=== PATIENT | female | born 1935 | race Caucasian/White ===

== ENCOUNTER → 2016-07-11 | Outpatient (CLI) | payer MEDICARE ==
[~2016-07-11] MED LIST: ALBU8.5H INH; BENZ100C97 PO; DOXE10CA21 PO; ESCI20TA22 PO; ESOM40CA PO; FENO145T10 PO; FLEC50TA2 PO; FLUT1DIS3 ORAL INH; FLUT1DIS4 IH; GUAI-1123 PO; IPRA3AMP AEROSOL; ISOS60TA4 PO; LEVO150T4 PO; LORA0.5T2 PO; LOSA50TA52 PO; MAGN250T33 PO; MECL-103 PO; METH750T3 PO; METO100T97 PO; MULT-862 PO; ONDA4TAB7 PO; RIVA15TA PO; SITA100T6 PO; SUCR1TAB PO; SULF1TAB42 PO; TOPI50TA25 PO; TRIA-56 PO; [UNRECOGNIZED DRUG - CODE] PO
== END ==
LOC: WC.BC 12:42
DX: Z12.31 Encounter for screening mammogram for malignant neoplasm of breast (principal); N64.59 Other signs and symptoms in breast; N64.89 Other specified disorders of breast
CPT/HCPCS: 77063; G0202

== ENCOUNTER 2016-11-16 11:14 | Observation (INO) ==
--- OUTSIDE RECORDS SUMMARY | 2016-11-16 11:29 | External Medical Summary | Continuity of Care Document ---
:1935 Author Organization [facility] Support Name Relationship Address Phone YELENA WESTON MD Unavailable [address] [place] [address] [address] SEAMUS TENORIO MD Unavailable [address] [place] [address] AURORA QUINONES DO Unavailable [employer] Unavailable [address] [place] [address] GUS BADILLO Unavailable [address] [place] [address] Insurance Providers Payer Name Policy Number Subscriber Name Relationship Medicare [id number] Adrianna Badillo 18 Self [facility] [id number] Gus Badillo 01 Spouse Advance Directives Directive Response Recorded Date/Time Advanced Directives Type Living Will DPOA for Healthcare 09/15/13 12:16pm Ordered Resuscitation Status Full Code, unverified 08/19/13 1:11pm Resuscitation Documents on File No 09/15/13 12:16pm Problems Medical Problems Problem Onset Date Status Dehydration Unknown Active GERD WITH ESOPHAGEAL SPASM Unknown Active Abdominal pain Unknown Active Abdominal pain Unknown Active Atypical chest pain Unknown Active Dyslipidemia Unknown Active Hypertension Unknown Active Paroxysmal atrial fibrillation Unknown Active Atypical chest pain Unknown Active Tinea cruris Unknown Active Tinea cruris Unknown Active Muscle spasm of left shoulder Unknown Active Forehead contusion Unknown Active Fall on same level Unknown Active Avulsed toenail Unknown Active Contusion of left knee Unknown Active COPD exacerbation Unknown Active Viral bronchitis Unknown Active COPD exacerbation Unknown Active Leg pain Unknown Active Hematoma of leg Unknown Active Dyspnea Unknown Active Muscle spasms of both lower extremities Unknown Active Anxiety attack Unknown Active Chest discomfort Unknown Active Tingling in extremities Unknown Active Muscle spasms of both lower extremities Unknown Active Tingling in extremities Unknown Active Medications Medication Dose Route Sig Days/Qty Instructions Order Discontinued Status Date Date [Actosin /26/11 Discontin Cream] 09 ued Fexofenadine 1 Tab PO DAILY /07/12 Discontin Hcl 09 ued [Note] 02/11/ /06/18 Discontin 08 ued Ivermectin 06/13/08 Discontin 08 ued Levothyroxine 1 Tab PO DAILY 06/13/08 Discontin Sodium 08 ued Salmeterol 1 Inh IH TWICE A 04/21/10 Discontin Xinafoate/Flut DAY 10 ued icasone Alprazolam 0.5 Mg PO 11/12/10 Discontin NEEDED 09 ued Zolpidem 10 Mg PO 03/12/10 Discontin Tartrate NEEDED 09 ued [Atrovent] 1 Inh INH DAILY 08/26/08 Discontin 09 ued Citalopram 20 Mg PO DAILY 12/03/08 Discontin Hydrobromide 09 ued Digoxin 250 PO DAILY 12/03/08 Discontin Mcg 09 ued Fluticasone 2 INH DAILY 12/03/08 Discontin Propionate Sloan 09 ued Triamterene/Hy 1 PO DAILY 03/28/10 Discontin drochlorothiaz Udtab 09 ued id Telmisartan 80 Mg PO DAILY 12/03/08 Discontin 09 ued Esomeprazole 40 Mg PO DAILY 03/12/10 Discontin Mag Trihydrate 09 ued Amlodipine 5 Mg PO DAILY 03/12/10 Discontin Besylate 09 ued Clopidogrel 75 Mg PO DAILY 12/03/08 Discontin Bisulfate 09 ued Ropinirole Hcl 1 Mg PO BEDTIME 03/12/10 Discontin 09 ued Levothyroxine 125 PO DAILY 03/12/10 Discontin Sodium Mcg 09 ued Levalbuterol 1.25 IH 12/03/08 Discontin Hcl Mg NEEDED 09 ued Ipratropium 500 NEB FOUR 09/12/10 Discontin [place] Mcg TIMES 09 ued DAILY Venlafaxine 150 Mg PO DAILY 03/12/10 Discontin Hcl 09 ued Fenofibrate 1 DAILY 04/08/11 Discontin Nanocrystalliz 09 ued ed Metaxalone 1 03/12/10 Discontin NEEDED 09 ued Sotalol Hcl 1 TWICE A 12/03/08 Discontin DAY 09 ued Sodium Oxybate 1 DAILY 12/03/08 Discontin 09 ued Cyclobenzaprin 1 DAILY 03/12/10 Discontin e Hcl 09 ued Meloxicam 1 DAILY 03/12/10 Discontin 09 ued [Coumadin] 1 PO DAILY 03/12/10 Discontin 09 ued Furosemide 20 Mg PO DAILY 03/12/10 Discontin 09 ued Metformin Hcl 500 Mg PO DAILY /28/12 Discontin 09 ued [Digoxin] 25 Mg PO DAILY 03/12/10 Discontin 09 ued Flecainide 50 Mg PO DAILY 03/12/10 Discontin Acetate 09 ued Potassium 20 Meq PO DAILY 03/12/10 Discontin Chloride 09 ued Metoprolol 50 Mg PO TWICE A 01/05/11 Discontin Tartrate DAY 09 ued Sodium Oxybate 500 Mg PO DAILY 03/12/10 Discontin 10 ued Cefprozil TWICE A 03/28/10 Discontin DAY 11 ued [Hyoscamine] 0.125 Q4H PRN 09/12/10 Discontin 11 ued [Janovia] DAILY 03/28/10 Discontin 11 ued [Pradaxa] 150 Mg PO TWICE A 09/12/10 Discontin DAY 11 ued [Multaq] 400 Mg TWICE A 09/12/10 Discontin DAY 11 ued Sitagliptin 100 Mg PO DAILY 04/21/10 Discontin Phosphate 11 ued Triamterene/Hy 0.5 PO DAILY 03/29/10 Discontin drochlorothiaz Tab 11 ued id Lansoprazole 15 Mg PO DAILY 09/12/10 Discontin 11 ued Amlodipine 10 Mg PO DAILY 03/28/10 Discontin Besylate 11 ued Telmisartan 80 Mg PO DAILY 09/12/10 Discontin 11 ued [Juice Plus 09/12/10 Discontin Fiber] NEEDED 11 ued Ascorbic Acid 500 Mg PO TWICE A 09/12/10 Discontin DAY 11 ued Cholecalcifero 400 PO DAILY 04/21/10 Discontin l Unit 11 ued Calcium 1 Tab PO DAILY 03/28/ 04/21/10 Discontin Carbonate/Marta 11 ued min D3 Ergocalciferol 1 Mg PO DAILY 09/12/10 Discontin 11 ued Amlodipine 1 Mg PO DAILY 04/21/ 09/12/10 Discontin Besylate 11 ued Triamterene/Hy 1 Tab PO 1/2 TAB DLY 09/16/13 Discontin drochlorothiaz 11 ued id Sitagliptin 1 Tab PO DAILY 04/21/ Active Phosphate 11 Alprazolam 1 Mg PO TWICE A 01/05/11 Discontin DAY 11 ued Albuterol 2 Mg INH EVERY /02/20 Discontin Sulfate 4-6 11 ued HOURS Gabapentin 1 Mg PO THREE 04/21/10 Discontin TIMES A 11 ued DAY Salmeterol 1 INH TWICE A 11/12/10 Discontin Xinafoate/Flut DAY 11 ued icasone Hyoscyamine 1 Mg PO 01/05/11 Discontin Sulfate NEEDED 11 ued Fenofibrate 1 Mg PO DAILY 04/21/10 Discontin Nanocrystalliz 11 ued ed Metoprolol 50 Mg PO TWICE A 04/21/10 Discontin Tartrate DAY 11 ued Hydrocodone 2 PO 09/12/10 Discontin Bit/Acetaminop NEEDED 11 ued hen [Pradaxa] 150 Mg PO DAILY 05/24/12 Discontin 11 ued Salmeterol 1 Puff IH TWICE A 01/22/12 Discontin Xinafoate/Flut DAY 11 ued icasone Fexofenadine 180 Mg PO DAILY 09/12/ 11/12/10 Discontin Hcl 11 ued Eszopiclone 2 Mg PO BEDTIME 04/08/11 Discontin 11 ued [Multaq] 400 Mg PO TWICE A 05/24/12 Discontin DAY 11 ued Omeprazole 20 Mg PO DAILY 11/12/10 Discontin 11 ued Loperamide Hcl 2 Mg PO 01/05/11 Discontin NEEDED 11 ued Isosorbide 30 Mg PO DAILY 04/08/11 Discontin Mononitrate 12 ued Metoprolol 100 Mg PO TWICE A 03/27/ 08/30/13 Discontin Tartrate DAY 12 ued Ascorbic Acid 500 Mg PO TWICE A 03/27/ 01/22/12 Discontin DAY 12 ued Ergocalciferol 400 PO DAILY 03/27/ 04/08/11 Discontin Unit 12 ued Fexofenadine 180 Mg PO DAILY 03/27/ 01/22/12 Discontin Hcl 12 ued [ 1 Tab PO DAILY 04/08/11 Discontin Angel] 12 ued Calcium 600 PO THREE 03/27/ 01/22/12 Discontin Citrate/Vitami Tab TIMES A 12 ued n D3 DAY Triamterene/Hy 25 PO DAILY 04/08/ 04/08/11 Discontin drochlorothiaz Udtab 12 ued id Polyethylene 12 Ea PO DAILY 04/08/ 01/22/12 Discontin Glycol 3350 12 ued Docusate 100 Mg PO TWICE A 04/08/ 01/22/12 Discontin Sodium DAY 12 ued Oxycodone 2 PO EVERY 02/20/12 Discontin Hcl/Acetaminop Udtab 4-6 12 ued hen HOURS Dronedarone TWICE A 05/24/ 04/02/13 Discontin Hydrochloride DAY 13 ued Escitalopram 20 Mg PO DAILY 90 Qty 04/02/13 Discontin Oxalate 13 ued Levothyroxine 200 PO DAILY 90 Qty 11/26/ 09/15/13 Discontin Sodium Mcg 13 ued Hyoscyamine 0.375 PO TWICE A 11/26/ Active Sulfate Mg DAY 13 Rivaroxaban 1 Tab PO DAILY 11/26/ 13 Doxepin Hcl 10 Mg PO BEDTIME Active 13 Salmeterol 1 Puff IH DAILY 11/26/ Active Xinafoate/Flut 13 icasone Fenofibrate 145 Mg PO DAILY 90 Qty 11/26/ 04/02/13 Discontin Nanocrystalliz 13 ued ed Escitalopram 1 Tab PO DAILY 04/02/ Active Oxalate 14 Fenofibrate 145 Mg PO DAILY 04/02/ Active Nanocrystalliz 14 ed Topiramate 50 Mg PO BEDTIME 08/19/ 09/15/13 Discontin 14 ued Metoprolol 100 Mg PO TWICE A 08/30/ Active Tartrate DAY 14 Hydrocodone 1 Tab PO EVERY 20 Qty 08/30/ 09/15/13 Discontin Bit/Acetaminop 4-6 14 ued hen HOURS For PAIN Hyoscyamine 0.125 SL Every 8 12 Qty 08/30/ 09/15/13 Discontin Sulfate Mg Hours 14 ued For SPASMS Multivitamins 1 Tab PO DAILY 09/15/ Active W-Minerals 14 Losartan 1 Tab PO DAILY 09/15/ Active Potassium 14 Isosorbide 60 Mg PO DAILY 09/15/ Active Mononitrate 14 Acetaminophen 1 Tab PO 09/15/ /10/23 Discontin NEEDED 14 ued Levothyroxine 200 PO GIVE 1 Qty 09/15/ 04/18/14 Discontin Sodium Mcg WITH 14 ued SUPPER Guaifenesin/De 1 Cap PO EVERY 10/27/ Active xtromethorphan FIVE TO 14 SIX HOURS Triamterene/Hy 1 Tab PO DAILY 10/27/ Active drochlorothiaz 14 id Meclizine HCl 25 Mg PO THREE 10/27/ Active TIMES A 14 DAY PRN PRN ORDERS Levothyroxine 1 Tab PO BEFORE 04/18/ Active Sodium BREAKFA [address] Esomeprazole 1 Cap PO BEDTIME 04/18/ Active Magnesium 15 Benzonatate 1 Tab PO THREE 04/18/ Active TIMES A 15 DAY PRN COUGH Lorazepam 1 Tab PO TWICE A 04/18/ Active DAY PRN 15 ANXIETY Methocarbamol 750 Mg PO FOUR 04/18/ Active TIMES 15 DAILY PRN PRN ORDERS Topiramate 1 Tab PO BEDTIME 04/18/ Active 15 Ibuprofen 1 Tab PO TWICE A 04/18/ Active DAY 15 Prochlorperazi 10 Mg PO DAILY 04/18/ Active ne Maleate PRN PRN 15 ORDERS Ipratropium/Al 1 Unit AEROSOL Every 6 06/19/ Active buterol Hours 15 Sulfate Methocarbamol 1 Tab PO Every 6 06/19/ Active Hours 15 PRN PRN ORDERS Isosorbide 1 Tab PO TWICE A 06/19/ Active Mononitrate DAY 15 Losartan 1 Tab PO DAILY 06/19/ Active Potassium 15 Oxycodone HCl 1 Tab PO TWICE A 06/19/ Active DAY PRN 15 PAIN Albuterol 1 Puff INH DAILY 26 Qty 06/19/ Active Sulfate PRN 15 SHORTNE SS OF AIR Escitalopram 1 Tab PO DAILY 06/19/ Active Oxalate 15 Social History Social History Problem Response Recorded Date/Time Chewing Tobacco Status No 08/30/2013 5:27am Hx Substance Use No 06/19/2014 3:42pm Hx Alcohol Use No 06/19/2014 3:42pm Has the pt used tobacco in the last 12 months No 09/15/2013 12:19pm Tobacco Usage none 09/15/2013 2:40pm Query Response Start Date Stop Date Smoking Status Never smoker Hospital Discharge Instructions No hospital discharge instructions. Plan of Care No plan of care. Functional Status Query Response Date Recorded Physical Hygiene Assist June 19, 2014 3:42pm Disabilities None September 16, 2013 6:12pm Devices Used None June 19, 2014 3:42pm Dressing Assist June 19, 2014 3:42pm Ambulation Self September 16, 2013 6:12pm Diet Self June 19, 2014 3:42pm Mental Status Alert September 16, 2013 6:12pm Oriented Disabilities None September 16, 2013 6:12pm Devices Used None June 19, 2014 3:42pm Physical Hygiene Assist June 19, 2014 3:42pm Dressing Assist June 19, 2014 3:42pm Ambulation Self September 16, 2013 6:12pm Diet Self June 19, 2014 3:42pm Allergies, Adverse Reactions, Alerts Allergen Type Severity Reaction Status Last Updated ciprofloxacin HCl Allergy Unknown N/V/DIARRHEA, SOA, Active 06/19/14 ITCHING Penicillin Allergy Severe THROAT SWELLING Active 06/19/14 [place] And Derivatives Allergy Unknown ORANGES Active 06/19/14 Iodine Allergy Severe IV-DIFFICULTY BREATHING, Active 06/19/14 HIVES Codeine Allergy Severe THROAT SWELLING Active 06/19/14 Aspirin Allergy Severe THROAT SWELLS SHUT Active 06/19/14 Doxycycline Allergy Mild Active 06/19/14 Ciprofloxacin Allergy Unknown N/V/DIARRHEA, SOA, Active 06/19/14 ITCHING Adhesive Allergy Unknown Active 06/19/14 Citalopram Allergy Unknown Active 06/19/14 fish derived Allergy Severe HIVES, SWELLING THROAT Active 06/19/14 Apples Allergy Mild Active 06/19/14 Immunizations Name Given Type Hx Influenza Vaccination Y FALL 2013 Historical Hx Pneumococcal Vaccination Y FALL 2012 Historical Hx Influenza Vaccination Y FALL 2013 Historical Vital Signs Acute Vital Signs Vital Response Date/Time Temperature (Fahrenheit) 97.6 deg F (96.8 - 99.1) Temperature (Calculated Celsius) 36.34677 degrees C (36.0 - 37.3) Pulse Rate (adult) 118 bpm (60 - 100) Respiratory Rate 12 breaths/min (10 - 20) O2 Sat by Pulse Oximetry 99 % (90 - 100) Oxygen Flow Rate 4 L/min Blood Pressure 158/74 mm Hg Height 5 ft 5 in Weight 322 lb Body Mass Index 53.0 kg/m^2 Results Test Source Date Result Interp. Ref. Comments Range Activated Partial October 27, 25.8 SEC N 24-36 Thromboplast Time 2013 8:40am Alanine June 01, 29 U/L N 9-52 Aminotransferase 2014 1:55am (ALT/SGPT) Albumin June 01, 3.5 G/DL N 3.5-5. 2014 1:55am 0 Albumin/Globulin June 01, 1.5 RATIO N 1.1-2. Ratio 2014 1:55am 2 Alkaline June 01, 33 U/L L 38-126 Phosphatase 2014 1:55am Amylase Level November 70 U/L N 30-110 2011 10:05pm Anion Gap June 01, 11 MEQ/L N 5-15 2014 1:55am Arterial Blood June 13, -0.5 MMOL/L N -2.0-2 Is the Base Excess 2009 .0 patient on 10:55am room air? YWhat is the Source? (Liters or Percent) ROOM AIR Arterial Blood June 13, 24 MEQ/L N 22-26 Is the HCO3 2008 patient on 10:55am room air? YWhat is the Source? (Liters or Percent) ROOM AIR Arterial Blood June 13, Not Performed - Oxygen Content 2008 10:55am Arterial Blood June 13, 39 MMHG N 34-45 Is the Partial Pressure 2008 patient on CO2 10:55am room air? YWhat is the Source? (Liters or Percent) ROOM AIR Arterial Blood June 13, 25.4 MEQ/L N 23-27 Is the Total CO2 2008 patient on 10:55am room air? YWhat is the Source? (Liters or Percent) ROOM AIR Arterial Blood pH June 13, 7.400 N 7.350- Is the 2008 7.450 patient on 10:55am room air? YWhat is the Source? (Liters or Percent) ROOM AIR Arterial Blood pO2 June 13, 84 MMHG N 80-100 Is the at Patient Temp 2008 patient on 10:55am room air? YWhat is the Source? (Liters or Percent) ROOM AIR Aspartate Amino June 01, 21 U/L N 14-36 Transf (AST/SGOT) 2014 1:55am B-Type Natriuretic January 05, 58 PG/ML N 15-100 Peptide 2010 12:52pm BUN/Creatinine June 01 RATIO N 6-26 Ratio 2014 1:55am Band Neutrophils # November 06, 0.1 T/MM3 - 2008 12:20pm Band Neutrophils % November 06, 1.0 % N 0-6 2008 12:20pm Basophils # (Auto) June 01, 0.0 T/MM3 N 0-0.2 2014 1:55am Basophils (%) June 01, 0.3 % N 0-2 (Auto) 2014 1:55am Blood Gas Oxygen June 13, 96.0 % N 95.0-9 Is the Saturation 2008 8.0 patient on 10:55am room air? YWhat is the Source? (Liters or Percent) ROOM AIR Blood Gas Tidal June 13, Not Performed 0-1200 Volume 2008 10:55am Blood Gas Vent June 13, Not Performed 0-30 Rate 2008 10:55am Blood Urea June 01, 33.0 MG/DL H 7-17 Nitrogen 2014 1:55am C-Reactive Protein September 15, < 5.0 MG/L 0-9 2013 12:30pm C. difficile Toxin June 21, Negative - If Toxin A is B Gene (PCR) 2012 7:20am clinically indicated, treat accordingly. Calcium Level June 01, 8.5 MG/DL N 8.4-10 2014 1:55am .2 Calculated June 01, 276 MOSM/KG N 261-28 Osmolality 2014 1:55am 0 Carbon Dioxide June 01, 25 MEQ/L N 22-30 Level 2014 1:55am Chemistry Specimen June 01, < 15 0-25 0-25: No Hemolysis.26-70: Slight Hemolysis - can falsely elevate K and Urine Hemolysis 2014 1:55am Protein. 71-285: Moderate Hemolysis - can falsely elevate K, Troponin I, CA 19-9, PTH, CSF GLucose, and Urine Protein, and can falsely decrease Phenytoin. 286-999: Gross Hemolysis - can falsely elevate K, Troponin I, CA 19-9, PTH, CSF Glucose, and Urine Protine, and can falsely decrease Phenytoin. Recommend specimen recollection. Chloride Level June 01, 103 MEQ/L N 98-107 2014 1:55am Cholesterol Level September 16, 187 MG/DL N 132-19 2013 4:38am 9 Cholesterol/HDL September 16, 3.9 RATIO N 0-4.0 Ratio 2013 4:38am Conjugated September 07, 0.00 MG/DL N 0.00-0 Bilirubin 2011 3:40pm .30 Creatine Kinase MB January 1.0 NG/ML N 0-3.4 2013 2:30pm Creatinine June 01, 2.0 MG/DL H 0.7-1. 2014 1:55am 2 D-Dimer January 177 NG/ML N 0-224 <224 2013 NG/ML=PRESUMP 2:30pm TIVE NEGATIVE FOR PE OR DVT>224 NG/ML=ADDITIO NAL EVALUATION FOR PE OR DVT RECOMMENDED Digoxin Level February 2.6 NG/ML PH 0.8-2. 10, 2008 0 1:50pm EKG February 1:55pm Eosinophils # June 01, 0.2 T/MM3 N 0-0.5 (Auto) 2014 1:55am Eosinophils # November 06, 0.1 T/MM3 N 0-0.5 (Manual) 2008 12:20pm Eosinophils % November 06, 1.0 % N 0-4 (Manual) 2008 12:20pm Eosinophils (%) June 01, 2.7 % N 0-4 (Auto) 2014 1:55am Erythrocyte September 15, 5 MM/HR N 0-20 Sedimentation Rate 2013 12:30pm Ferritin April 94.4 NG/ML N 11-264 2010 6:40pm Free Thyroxine April 02, 0.69 NG/DL L 0.78-2 2013 5:55pm .19 Globulin June 01, 2.4 G/DL N 2.4-3. 2014 1:55am 6 Glomerular June 01, 24 - Filtration Rate 2014 1:55am Calc Glucometer September 16, 139 mg/dL H 65-110 2013 5:13pm Glucose Level June 01, 108 MG/DL N 65-110 2014 1:55am HDL Cholesterol September 16, 48 MG/DL N 40-60 Direct 2014 4:38am Hematocrit June 01, 31.5 % L 36-46 2014 1:55am Hemoglobin June 01, 9.8 GM/DL L 12-16 2014 1:55am Hemoglobin A1c September 16, 5.4 % L 6-7 <6.0 NON-DIABETIC RANGE6.0-7.0 ADA THERAPEUTIC RANGE 2013 4:38am >7.0 ACTION SUGGESTED Icterus Index June 01, < 2 0-7 2014 1:55am Immature June 01, 0.06 T/MM3 H 0.00-0 Granulocyte # 2015 1:55am .03 (Auto) Immature June 01, 0.8 % H 0.0-0. Granulocyte % 2014 1:55am 5 (Auto) Influenza Type A April 02, Negative - Negative for Flu A protein antigen. Assay sensitivity isbetween 65-83%. A negative result does not exclude Antigen 2013 6:38pm influenza virus infection. "Influenza FA& quot; may be ordered if clinical presentation warrants confirmatory testing. Influenza Type B April 02, Negative - Negative for Flu B protein antigen. Assay sensitivity isbetween 65-83%. A negative result does not exclude Antigen 2013 6:38pm influenza virus infection. "Influenza FA& quot; may be ordered if clinical presentation warrants confirmatory testing. Iron Level April 36 UG/DL L 37-170 2010 6:40pm LDL Cholesterol, September 16, 105.8 N 66-159 Calculated 2013 4:38am Lab Scanned Report January LAB TEST FORM - 2013 REQUEST 7:23pm [id number] Lipase September 16, 131 U/L N 23-300 COMMENT add 2013 4:38am to blood in lab from this AM. Lymphocytes # June 01, 1.9 T/MM3 N 1-4.8 (Auto) 2014 1:55am Lymphocytes # November 06, 3.0 T/MM3 N 1-4.8 (Manual) 2008 12:20pm Lymphocytes % November 06, 29.0 % N 23-45 (Manual) 2008 12:20pm Lymphocytes (%) June 01, 25.1 % N 23-45 (Auto) 2014 1:55am MRSA Specimen March 23, Nasal - Source 2011 1:53pm Magnesium Level September 15, 1.8 MG/DL N 1.6-2. 2013 3 12:30pm Mean Corpuscular June 01, 29.6 UUG N 26-34 Hemoglobin 2015 1:55am Mean Corpuscular June 01, 31.1 GM/DL N 31-37 Hemoglobin Concent 2014 1:55am Mean Corpuscular June 01, 95.2 UM3 N 80-100 Volume 2015 1:55am Mean Platelet June 01, 10.8 UM3 N 9.4-12 Volume 2015 1:55am .4 Methicillin-Resist March 23, Negative - S.aureus DNA PCR 2011 1:53pm Monocytes # (Auto) June 01, 0.7 T/MM3 N 0-0.8 2014 1:55am Monocytes # November 06, 0.1 T/MM3 N 0-0.8 (Manual) 2008 12:20pm Monocytes % November 06, 1.0 % N 0-9.0 (Manual) 2008 12:20pm Monocytes (%) June 01, 8.9 % N 0-9.0 (Auto) 2014 1:55am PR-Mri-A-Type November 347 PG/ML H 0-175 Rule in cut points: <50 years old=450; Natriuretic 2013 50-75 years old=900; Peptide 2:37pm >75 years old=1800; When utilizing ProBNP rule-in cut points, adjustment for impaired renal function is typically not required. Neutrophils # June 01, 4.7 T/MM3 N 1.8-7. (Auto) 2014 1:55am 7 Neutrophils # November 06, 6.9 T/MM3 N 1.8-7. (Manual) 2008 7 12:20pm Neutrophils % November 06, 68.0 % H 33-66 (Manual) 2008 12:20pm Neutrophils (%) June 01, 62.2 % N 33-66 (Auto) 2014 1:55am Ova and Parasites April Ref lab rpt - --- 05/04/10 (LAB) 2010 scanned [id number] ---OAP 2:50pm previously reported as: SENT OUT Oxygen Delivery June 13, Room air - Is the Method (LAB) 2008 patient on 10:55am room air? YWhat is the Source? (Liters or Percent) ROOM AIR Percent Iron April 9 % N 9-55 Saturation 2010 6:40pm Platelet Count June 01, 169 T/MM3 N 130-40 2014 1:55am 0 Potassium Level June 01, 4.0 MEQ/L N 3.6-5 2014 1:55am Prothromb Time October 27, 1.00 N 0.81-1 THERAPUTIC International 2013 8:40am .09 RANGE=2.00-3. Ratio 00 FOR ANTI-THROMBOS IS THERAPUTIC RANGE=2.50-3. 50 FOR IMPLANTED VALVE RDW Standard June 01, 44.9 FL N 36.9-5 Deviation 2014 1:55am 0.2 Red Blood Count June 01, 3.31 M/MM3 L 4.00-5 2014 1:55am .20 Sodium Level June 01, 139 MEQ/L N 134-14 2014 1:55am 4 Stool for White April Negative - Has specimen Cells 2010 been 2:50pm collected/obt ained? Y Tests Not Done November Not done - Has specimen 2008 been 2:00pm collected/obt ained? Y Thyroid September 15, 0.87 MIU/L DN 0.47-4 Stimulating 2013 .68 Hormone (TSH) 12:30pm Total Bilirubin June 01, 0.30 MG/DL N 0.20-1 2014 1:55am .30 Total Creatine January 77 U/L N 30-135 Kinase 2013 2:30pm Total Iron Binding April 393 UG/DL N 261-49 Capacity 2010 7 6:40pm Total Protein June 01, 5.9 G/DL L 6.3-8. 2014 1:55am 2 Triglycerides September 16, 166 MG/DL H 35-135 Level 2013 4:38am Troponin I April < 0.012 0-0.12 2014 ng/ml 3:30pm Turbidity June 01, < 20 0-20 2014 1:55am Unconjugated September 07, 0.10 MG/DL N 0.00-1 Bilirubin 2011 3:40pm .10 Urinalysis Comment February Microscopic - Has specimen 2013 not ind. been 3:50am collected/obt ained? Y Urine Amorphous April 01 - COMMENT C/S Urates 2010 IF 11:00am INDICATEDHas specimen been collected/obt ained? Y Urine Bacteria September 16, 3+ H - COMMENT do 2013 4:50am full UA.Has specimen been collected/obt ained? Y Urine Bilirubin February Negative - Has specimen 2013 been 3:50am collected/obt ained? Y Urine Blood February Negative - Has specimen 2013 been 3:50am collected/obt ained? Y Urine Coarse April 01- /LPF - COMMENT C/S Granular Casts 2010 IF 11:00am INDICATEDHas specimen been collected/obt ained? Y Urine Collection February Cleancatch-mi - Has specimen Type 2013 dstream been 3:50am collected/obt ained? Y Urine Color February Yellow - Has specimen 2013 been 3:50am collected/obt ained? Y Urine Culture January 07 reflexed - Has specimen Indicated 2012 8:55am &setup been collected/obt ained? Y Urine Glucose (UA) February Negative - Has specimen 2013 been 3:50am collected/obt ained? Y Urine Ketones February Negative - Has specimen 2013 been 3:50am collected/obt ained? Y Urine Leukocyte February Negative - Has specimen Esterase 2013 been 3:50am collected/obt ained? Y Urine Microscopic April Not indicated - Has specimen Not Indicated 2010 been 12:46pm collected/obt ained? Y Urine Mucus September 12 - Has specimen 2010 1:32pm been collected/obt ained? Y Urine Nitrite February Negative - Has specimen 2013 been 3:50am collected/obt ained? Y Urine Protein February Negative - Has specimen 2013 been 3:50am collected/obt ained? Y Urine RBC September 16, None seen - COMMENT do 2013 4:50am /HPF full UA.Has specimen been collected/obt ained? Y Urine Random September 16, 54.1 MG/DL - Has specimen Creatinine 2013 4:50am been collected/obt ained? Y Urine Random Urea September 16, 520.0 MG/DL - Has specimen Nitrogen 2013 4:50am been collected/obt ained? Y Urine Renal November 01-3 /HPF - Epithelial Cells 2012 12:08pm Urine Specific February 1.015 - Has specimen [place] 2013 been 3:50am collected/obt ained? Y Urine Squamous September 16, 0-5 - COMMENT do Epithelial Cells 2013 4:50am full UA.Has specimen been collected/obt ained? Y Urine Turbidity February Clear - Has specimen 2013 been 3:50am collected/obt ained? Y Urine Urobilinogen February 0.2 EU/DL - Has specimen 2013 been 3:50am collected/obt ained? Y Urine WBC September 16, 3-5 /HPF - COMMENT do 2013 4:50am full UA.Has specimen been collected/obt ained? Y Urine WBC Clumps September 16, Few - COMMENT do 2013 4:50am full UA.Has specimen been collected/obt ained? Y Urine pH February 7.0 - Has specimen 2013 been 3:50am collected/obt ained? Y VLDL Cholesterol September 16, 33.2 MG/DL H 0-2013 4:38am White Blood Count June 01, 7.5 T/MM3 N 4.5-11 2014 1:55am .0 Blood Culture Blood April NO GROWTH 2010 AFTER 5 DAYS 12:46pm Stool Culture Stool April 21, 2010 2:50pm Gram Stain Knee, March 28, Intraoperative 2011 Site-Right 12:47pm Urine Culture Urine, Clean April Escherichia Catch-Midstream 2013 Coli 3:00pm Name: ADRIANNA BADILLO Unit #: [id number] : 1935 Sex: F Loc / Svc: ED DOS: 06/19/14 Signed Report #: [id number] DIAGNOSTIC IMAGING REPORT TYPE OF EXAM: KNEE LEFT 3 VIEWS Dictated By: YURY PELAEZ MD Indication: ITS.REASON: FALL WITH KNEE PAIN Comparison: 03/15/2014 Findings: Bony mineralization is normal. 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 The hardware components appear unchanged without evidence of acute complication. No periprosthetic fracture identified. No significant joint effusion. No focal radiographically apparent soft tissue abnormality. 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 . Procedures Procedure Status Date Provider(s) CHEST X-RAY 2VW FRONTAL&LATL completed 04/18/14 COMPREHEN METABOLIC PANEL completed 04/18/14 ASSAY OF TROPONIN QUANT completed 04/18/14 COMPLETE CBC W/AUTO DIFF WBC completed 04/18/14 AIRWAY INHALATION TREATMENT completed 04/18/14 AIRWAY INHALATION TREATMENT completed 04/18/14 THER/PROPH/DIAG INJ IV PUSH completed 04/18/14 TX/PRO/DX INJ NEW DRUG ADDON completed 04/18/14 EMERGENCY DEPT VISIT completed 04/18/14 [id number] ITEM OR SERVICE completed 04/18/14 [id number]"INJECTION, KETOROLAC TROMETHAMINE, PER 15 completed 04/18/14 MG" [id number]"INJECTION, METHYLPREDNISOLONE SODIUM completed 04/18/14 SUCCINATE, UP TO EMERGENCY DEPT VISIT completed 05/04/14 ROUTINE VENIPUNCTURE completed 06/01/14 CHEST X-RAY 2VW FRONTAL&LATL completed 06/01/14 COMPREHEN METABOLIC PANEL completed 06/01/14 COMPLETE CBC W/AUTO DIFF WBC completed 06/01/14 HYDRATE IV INFUSION ADD-ON completed 06/01/14 HYDRATE IV INFUSION ADD-ON completed 06/01/14 THER/PROPH/DIAG INJ IV PUSH completed 06/01/14 EMERGENCY DEPT VISIT completed 06/01/14 [id number]"INFUSION, NORMAL SALINE SOLUTION , 1000 completed 06/01/14 CC" Encounters Encounter Location Date/Time Departed Emergency Room [facility] 06/19/14 3:20pm Departed Emergency Room [facility] 06/01/14 12:55am Departed Emergency Room [facility] 05/04/14 3:30am Departed Emergency Room [facility] 04/18/14 2:54pm Recent Diagnosis
[2016-11-16] MEDS ORDERED: SALINE FLUSH 10ml SYRINGE IVF PRN (11:41)
[2016-11-16 11:50] VITALS: BMI 48.1
[2016-11-16 11:57] VITALS: RESP 16
[2016-11-16] MEDS: FUROSEMIDE 40 MG/4 ML INJECTION IVP SCH ×2 (13:36→18:44)
--- NOTE | 2016-11-16 13:55 | XRay Report ---
INDICATION: dyspnea, hypoxia PROCEDURE: CHEST 2-VIEWS UPRIGHT (PA & LAT) Encounter: Initial Comparison: August 12, 2016 Findings: The lungs are stable in appearance without new focal airspace consolidation. There is no pleural effusion or pneumothorax. The heart size, pulmonary vascularity and mediastinal contours are unchanged. IMPRESSION: Stable appearance of the chest without acute cardiopulmonary disease. .
[2016-11-16] MEDS ORDERED: IBUPROFEN 200 MG TABLET PO PRN (17:50)
[2016-11-16] MEDS ORDERED: BACLOFEN 10 MG PO PRN (17:50)
[2016-11-16] MEDS ORDERED: Oxycodone/Acetaminophen 5/325 1 TAB PO PRN (17:50)
[2016-11-16] MEDS ORDERED: LORazepam 0.5 MG TABLET PO PRN (17:50)
[2016-11-16] MEDS ORDERED: HYOSCYAMINE 0.375 MG PO PRN (17:50)
[2016-11-16] MEDS ORDERED: GUAIFENESIN LA 600 MG TABLET PO PRN (17:50)
[2016-11-16] MEDS: NS 1,000 ML IV SCH (17:57)
[2016-11-16] MEDS: FLECAINIDE 50 MG PO SCH (20:42)
[2016-11-16] MEDS: SUCRALFATE 1 GM PO SCH (20:42)
[2016-11-16] MEDS ORDERED: DOXEPIN 10 MG PO SCH (21:00)
[2016-11-16] MEDS ORDERED: TOPIRAMATE 25 MG PO SCH (21:00)
[2016-11-17] MEDS: NS 1,000 ML IV SCH ×2 (02:26→10:24)
[2016-11-17] MEDS: SUCRALFATE 1 GM PO SCH ×2 (06:06→12:39)
[2016-11-17] MEDS ORDERED: LEVOTHYROXINE 150 MCG PO SCH (06:30)
[2016-11-17] MEDS ORDERED: OMEPRAZOLE 20 MG CAPSULE PO SCH (06:30)
[2016-11-17] MEDS ORDERED: ISOSORBIDE MONONITRATE 60 MG PO SCH (06:30)
[2016-11-17 07:23] VITALS: BP 120/50; PULSE 74; TEMP 98; O2SAT 99
--- NOTE | 2016-11-17 07:36 | Echocardiogram ---
DATE OF PROCEDURE: November 16, 2016 FINDINGS This is a two-dimensional echo with spectral Doppler, color-flow and M-mode. It was obtained in a patient with atrial fibrillation. Left atrial dimension is at the upper limits of normal. Left ventricle end- diastolic dimension is normal. Left ventricle wall thickness is increased. LV systolic function is normal with ejection fraction of 69%. Right atrium is normal. Right ventricle is normal. Aortic root dimension is normal. Mitral valve is morphologically normal with mild mitral regurgitation. Aortic valve appears to be normal. Tricuspid valve shows mild tricuspid regurgitation with mild pulmonary hypertension with estimated pulmonary artery systolic pressure of 37. Pulmonary valve shows trace of pulmonary insufficiency. There is no pericardial effusion. IMPRESSION 1. Normal LV systolic function with ejection fraction of 69%. 2. Concentric left ventricular hypertrophy. 3. Mild mitral regurgitation. 4. Mild tricuspid regurgitation with mild pulmonary hypertension with estimated pulmonary artery systolic pressure of 37. 5. Trace of pulmonary insufficiency. MTDD
[2016-11-17] MEDS ORDERED: METOPROLOL TARTRATE 100 MG PO SCH ×2 (08:00→17:30)
[2016-11-17] MEDS ORDERED: FENOFIBRATE 145 MG PO SCH (08:00)
[2016-11-17] MEDS: FLECAINIDE 50 MG PO SCH (08:09)
[2016-11-17] MEDS ORDERED: SITAGLIPTIN 100 MG PO SCH (09:00)
[2016-11-17] MEDS ORDERED: MULTI-VITAMIN + MINERAL TABLET PO SCH (09:00)
[2016-11-17] MEDS ORDERED: ESCITALOPRAM 20 MG PO SCH (09:00)
--- NOTE | 2016-11-17 09:48 | Discharge Summary ---
<Aidee Valenzuela - Last Filed: 11/17/16 09:43> Discharge Information Date of admission: 11/16/16 11:19 Anticipated date of discharge: 11/17/16 Attending Physician: Osorio Goode MD Primary care physician: Danica Iverson MD - Laboratory Labs: 11/17/16 04:33 11/17/16 04:33 Laboratory Results - last 24 hr 11/16/16 11/16/16 11/17/16 12:28 12:28 04:33 WBC 5.5 RBC 3.58 L Hgb 10.9 L Hct 34.7 L MCV 96.9 MCH 30.4 MCHC 31.4 RDW Std Deviation 45.8 Plt Count 150 MPV 11.5 Immature Gran % (Auto) 0.5 Neut % (Auto) 65.1 Lymph % (Auto) 19.7 L Redwood % (Auto) 10.7 H Eos % (Auto) 3.8 Baso % (Auto) 0.2 Neut # 3.6 Lymph # 1.1 Redwood # 0.6 Eos # 0.2 Baso # 0.0 Abs Immat Gran (auto) 0.03 Turbidity < 20 < 20 Sodium 145 H 144 Potassium 4.5 3.8 Chloride 108 H 109 H Carbon Dioxide 26 26 Anion Gap 11 9 BUN 42.0 H 40.0 H Creatinine 1.5 H 1.4 H D GFR Calculation 33 36 BUN/Creatinine Ratio 28 H 29 H Glucose 95 91 Glucometer Calculated Osmolality 290 H 287 H Calcium 9.8 9.3 Magnesium 2.0 1.8 Total Bilirubin 0.50 Icterus Index < 2 < 2 AST 28 ALT 37 Alkaline Phosphatase 35 L Troponin I < 0.012 B-Natriuretic Peptide 218 H Total Protein 7.2 Albumin 4.3 Globulin 2.9 Albumin/Globulin Ratio 1.5 TSH 1.30 Specimen Hemolysis < 15 < 15 11/17/16 11/17/16 04:33 06:27 WBC 4.1 L RBC 3.37 L Hgb 10.4 L Hct 32.7 L MCV 97.0 MCH 30.9 MCHC 31.8 RDW Std Deviation 45.2 Plt Count 136 MPV 11.3 Immature Gran % (Auto) 0.5 Neut % (Auto) 57.0 Lymph % (Auto) 23.1 Redwood % (Auto) 13.8 H Eos % (Auto) 5.4 H Baso % (Auto) 0.2 Neut # 2.3 Lymph # 0.9 L Redwood # 0.6 Eos # 0.2 Baso # 0.0 Abs Immat Gran (auto) 0.02 Turbidity Sodium Potassium Chloride Carbon Dioxide Anion Gap BUN Creatinine GFR Calculation BUN/Creatinine Ratio Glucose Glucometer 106 Calculated Osmolality Calcium Magnesium Total Bilirubin Icterus Index AST ALT Alkaline Phosphatase Troponin I B-Natriuretic Peptide Total Protein Albumin Globulin Albumin/Globulin Ratio TSH Specimen Hemolysis - Radiology Radiology: Date of Exam: 11/16/16 Ordering Provider: Aidee Valenzuela APRN Type of Exam(s): XR chest 2V Reason for Exam(s): dyspnea, hypoxia INDICATION: dyspnea, hypoxia PROCEDURE: CHEST 2-VIEWS UPRIGHT (PA & LAT) Encounter: Initial Comparison: August 12, 2016 Findings: The lungs are stable in appearance without new focal airspace consolidation. There is no pleural effusion or pneumothorax. The heart size, pulmonary vascularity and mediastinal contours are unchanged. IMPRESSION: Stable appearance of the chest without acute cardiopulmonary disease. History of Present Illness HPI: Kristina is a 81 year old female who is well known to Dr. Goode's practice with a history of paroxysmal atrial fibrillation, CAD, HTN, HLD, DM type II and hypothyroidism. She was seen in the office by Mercedes Hubbard APRN for worsening fatigue and weakness that began last Sunday with associated bilateral leg edema and dyspnea. She reported multiple episodes of near syncope, and severe muscle cramps on the left side for which she takes baclofen. She was found to be in atrial fibrillation and her symptoms with the arrhythmia have included dyspnea and acute CHF. She is admitted to Dr. Goode for observation and further evaluation. Hospital Course This is a general summary of the patient's hospital course. For more details refer to the complete medical record. Hospital course: 11/16/16 Kristina was in SR upon admission. Continued Flecainide and Xarelto. Lab indicated dehydration (Na 145, BUN 42, CR 1.5, BNP 218) She was given IVF of NS at 125ml/Hr overnight. EF 69% on echo. Creatinine improved to 1.4. Changed Metoprolol tartrate 100mg to BID from daily. She continued to c/o dizziness when laying flat that resolves when the HOB is raised. Patient is instructed to follow up with her PCP Dr. Iverson. DVT Prophylaxis: Xarelto Exam Vital signs: Temperature 98.0 F 11/17/16 07:22 Pulse Rate 74 11/17/16 07:22 Respiratory Rate 16 11/17/16 07:22 Blood Pressure 120/50 11/17/16 07:22 Pulse Oximetry 99 11/17/16 07:22 - Constitutional no acute distress, morbidly obese, cooperative - Routine HEENT Exam Head: Present: normocephalic ENT: Present: mucous membranes moist - Routine Neck Exam Absent: JVD, carotid bruit - Routine Chest/Breast/Axilla Exam Chest wall: Absent: tenderness - Routine Respiratory Exam Absent: rales, wheezes, diminished air movement - Routine Cardiovascular Exam Present: RRR, no murmur. Absent: JVD - Routine Abdominal Exam Present: soft, normoactive bowel sounds - Routine Extremities Exam Present: edema - Routine Skin Exam Present: intact, dry, warm - Routine Neurological Exam Present: alert, oriented X3 - Routine Psychiatric Exam Present: normal affect, normal thought process Results 11/17/16 04:33 11/17/16 04:33 Cardiac Enzymes 11/16/16 Range/Units 12:28 AST 28 (14-36) U/L Troponin I < 0.012 (0-0.12) ng/ml B-Natriuretic Peptide 218 H (0-175) pg/mL Coagulation 11/16/16 Range/Units 12:28 B-Natriuretic Peptide 218 H (0-175) pg/mL CBC 11/16/16 11/17/16 Range/Units 12:28 04:33 WBC 5.5 4.1 L (4.5-11.0) T/MM3 RBC 3.58 L 3.37 L (4.00-5.20) M/MM3 Hgb 10.9 L 10.4 L (12-16) GM/DL Hct 34.7 L 32.7 L (36-46) % Plt Count 150 136 (130-400) T/MM3 Neut # 3.6 2.3 (1.8-7.7) T/MM3 Lymph # 1.1 0.9 L (1-4.8) T/MM3 Redwood # 0.6 0.6 (0-0.8) T/MM3 Eos # 0.2 0.2 (0-0.5) T/MM3 Baso # 0.0 0.0 (0-0.2) T/MM3 Comprehensive Metabolic Panel 11/16/16 11/17/16 Range/Units 12:28 04:33 Sodium 145 H 144 (134-144) MEQ/L Potassium 4.5 3.8 (3.6-5) MEQ/L Chloride 108 H 109 H (98-107) MEQ/L Carbon Dioxide 26 26 (22-30) MEQ/L BUN 42.0 H 40.0 H (7-17) MG/DL Creatinine 1.5 H 1.4 H D (0.7-1.2) MG/DL Glucose 95 91 (65-110) MG/DL Calcium 9.8 9.3 (8.4-10.2) MG/DL AST 28 (14-36) U/L ALT 37 (9-52) U/L Alkaline Phosphatase 35 L (38-126) U/L Total Protein 7.2 (6.3-8.2) G/DL Albumin 4.3 (3.5-5.0) G/DL Intake and Output 11/16/16 11/17/16 11/17/16 22:59 06:59 14:59 Intake Total 240 / 240 1200 / 1200 Output Total 2200 / 2200 500 / 500 Balance -1960 / -1960 700 / 700 Intake: IV 1000 / 1000 Normal Saline 1,000 ml @ 1000 / 1000 125 mls/hr IV [facility] Rx #:[id number] Oral 240 / 240 200 / 200 Output: Urine 2200 / 2200 500 / 500 Other: Urine Appearance Clear Clear Urine Color Dark Yellow Yellow Urine Odor Strong Strong Stool Characteristics Normal for Patient Stool Color Brown Stool Consistency Loose Size of Bowel Movement Small # Bowel Movements 1 Weight 291 lb 3.69 oz Patient Weight 11/18/16 06:59 Weight 291 lb 3.69 oz - Imaging and Cardiology EKG results: image reviewed Imaging & Cardiology Narrative: 11/17/16 10:08 Date of Exam: 11/16/16 Type of Exam(s): US echo doppler complete DATE OF PROCEDURE: November 16, 2016 FINDINGS This is a two-dimensional echo with spectral Doppler, color-flow and M-mode. It was obtained in a patient with atrial fibrillation. Left atrial dimension is at the upper limits of normal. Left ventricle end- diastolic dimension is normal. Left ventricle wall thickness is increased. LV systolic function is normal with ejection fraction of 69%. Right atrium is normal. Right ventricle is normal. Aortic root dimension is normal. Mitral valve is morphologically normal with mild mitral regurgitation. Aortic valve appears to be normal. Tricuspid valve shows mild tricuspid regurgitation with mild pulmonary hypertension with estimated pulmonary artery systolic pressure of 37. Pulmonary valve shows trace of pulmonary insufficiency. There is no pericardial effusion. IMPRESSION 1. Normal LV systolic function with ejection fraction of 69%. 2. Concentric left ventricular hypertrophy. 3. Mild mitral regurgitation. 4. Mild tricuspid regurgitation with mild pulmonary hypertension with estimated pulmonary artery systolic pressure of 37. 5. Trace of pulmonary insufficiency. Discharge Plan - Med Rec/Dispo Referrals/Follow Up: Osorio Goode MD [Physician] - 12/06/16 2:00 pm Additional Instructions: Hold Losartan and Triamterene/HCTZ until Sunday. Recheck lab on Sunday Prescriptions: Continue Losartan Potassium 50 mg PO DAILY #0 Esomeprazole Magnesium [Nexium] 40 mg PO DAILY #0 Levothyroxine Sodium [Synthroid] 150 mcg PO ACB #0 Hyoscyamine [Levbid] 0.375 mg PO BID PRN PRN Reason: Muscle Spasm Escitalopram [Lexapro] 20 mg PO DAILY Multivit-Min/Iron/Folic/[id number] [Hair, Skin and Nails Tablet] 1 each PO DAILY Oxycodone/APAP 5/325 [Percocet 5/325] 1 tab PO Q6H PRN #15 tablet PRN Reason: Pain Ibuprofen 2 tab PO Q4-6HPRN PRN PRN Reason: Pain Sitagliptin Phosphate [Januvia] 100 mg PO DAILY #0 Rivaroxaban [Xarelto] 15 mg PO DAILY #0 Doxepin HCl 10 mg PO HS #0 Fenofibrate [Tricor] 145 mg PO DAILY #0 Metoprolol Tartrate 100 mg PO DAILY #0 Isosorbide Mononitrate [Isosorbide Mononitrate ER] 60 mg PO DAILY #0 Triamterene/Hydrochlorothiazid [Triamterene-Hctz 75-50 mg Tab] 1 tab PO DAILY #0 LORazepam [Lorazepam] 0.5 mg PO DAILY PRN #0 PRN Reason: ANXIETY Flecainide Acetate 50 mg PO BID #0 tab Sucralfate 1 gm PO ACHS #0 tab guaiFENesin [Mucinex] 600 mg PO BID PRN PRN Reason: Cough /Congestion Topiramate 50 mg PO HS Baclofen [Lioresal] 1 tab PO TID PRN #21 tab PRN Reason: Muscle Cramps - Disposition [facility] <Osorio Goode - Last Filed: 11/20/16 13:14> Discharge Information Date of admission: 11/16/16 11:19 Attending Physician: Osorio Goode MD Primary care physician: Danica Iverson MD - Laboratory Labs: 11/17/16 04:33 11/17/16 04:33 Hospital Course This is a general summary of the patient's hospital course. For more details refer to the complete medical record. Exam Vital signs: Temperature 98.0 F 11/17/16 07:22 Pulse Rate 74 11/17/16 07:22 Respiratory Rate 16 11/17/16 07:22 Blood Pressure 120/50 11/17/16 07:22 Pulse Oximetry 99 11/17/16 07:22 Results 11/17/16 04:33 11/17/16 04:33 Discharge Plan - Med Rec/Dispo - Attestation Attestation Narrative: 11/20/16 13:14 Recommendation After examining the patient I agree with the above assessment. I am involved in the formulation of the patient's plan of care.
[2016-11-17] MEDS ORDERED: RIVAROXABAN 15 MG PO SCH (17:30)
== END 2016-11-17 12:15 | disposition home health service (06) ==
LOC: MED
PROVIDERS: ADMIT Internal Medicine Cardiovascular Disease; ATTEND Internal Medicine Cardiovascular Disease